=== PATIENT | male | born 1970 | race Caucasian/White ===

== ENCOUNTER 2016-11-10 15:22 | Emergency (ER) | payer OTHER ==
[2016-11-10 15:36] VITALS: TEMP 98.6
[2016-11-10] MEDS ORDERED: LET GEL TOPICAL 1 EA SYR TP ONE (15:54)
[2016-11-10] MEDS ORDERED: OXYCODONE/APAP 5/325 TAB PO ONE (16:01)
[2016-11-10 16:05] VITALS: O2SAT 94
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
[2016-11-10 17:24] VITALS: BP 121/61; PULSE 69; RESP 16
== END 2016-11-10 17:22 | disposition home or self-care (01) ==
DX: S22.42XA Multiple fractures of ribs, left side, initial encounter for closed fracture (principal); T14.8 Other injury of unspecified body region; V18.0XXA Pedal cycle driver injured in noncollision transport accident in nontraffic accident, initial encounter; Y92.410 Unspecified street and highway as the place of occurrence of the external cause; Y99.8 Other external cause status; Y93.89 Activity, other specified